=== PATIENT | female | born 1955 | race African-American/Black ===

== ENCOUNTER 2019-04-25 18:35 | Emergency (ER) | payer OTHER ==
[~2019-04-25] VITALS: Ht 167.6 cm; Wt 86.2 kg
[2019-04-25] MEDS ORDERED: NORVASC 2.5 MG2.5 M1 PO (18:37)
[2019-04-25] MEDS ORDERED: SERTRALINE HCL50 MG PO (18:38)
[2019-04-25] MEDS ORDERED: CELEBREX 200 M200 M1 PO (18:38)
[2019-04-25] MEDS ORDERED: TRAMADOL 50 MG50 MG PO ×2 (18:38→21:58)
[2019-04-25] MEDS ORDERED: XANAX 0.25 MG0.25 MG PO (18:38)
[2019-04-25 19:27] LABS: HEMATOCRIT 37.4 % (37.0-47.0); HEMOGLOBIN 12.4 gm/dL (12.0-15.0); MCH 31.8 pg (26.0-34.0); MCHC 33.2 g/dL (28.0-37.0); MCV 95.7 fL (80.0-100.0); RBC 3.91 mil/uL (4.20-5.00); RDW 13.8 % (10.5-14.5); WBC 5.7 thou/uL (4.0-11.0)
[2019-04-25 19:35] LABS: AMP/METHAMP Negative (Negative); BARBITURATES Negative (Negative); BENZODIAZEPINES Negative (Negative); COCAINE Negative (Negative); METHADONE Negative (Negative); OPIATES POSITIVE (Negative); PCP POSITIVE (Negative)
[2019-04-25 19:36] LABS: CALCIUM 9.5 mg/dL (8.5-10.1); CREATININE 0.7 mg/dL (0.6-1.0); POTASSIUM 3.5 mmol/L (3.5-5.1)
[2019-04-25] MEDS ORDERED: ASA81BEC PO (21:31)
[2019-04-25] MEDS ORDERED: CARAFATE1 GM PO (21:32)
[2019-04-25] MEDS ORDERED: METOPROLOL SUCC50 MG PO (21:32)
[2019-04-25] MEDS ORDERED: GLIMEPIRIDE1 MG PO (21:32)
[2019-04-25] MEDS ORDERED: MYLANTA MAXIMU355 ML PO (21:33)
[2019-04-25] MEDS ORDERED: NOVOLIN 70100 UNIT/1 SUBQ (21:34)
[2019-04-25] MEDS ORDERED: OXYBUTYNIN 5 MG5 M2 PO (21:34)
[2019-04-25] MEDS ORDERED: PROTONIX40 M2 PO (21:35)
[2019-04-25] MEDS ORDERED: REFRESH CLASSI1 EACH OPHTHALMIC ×2 (21:35→21:36)
[2019-04-25] MEDS ORDERED: PROLOPRIM100 MG PO (21:36)
[2019-04-25] MEDS ORDERED: XARELTO15 MG PO (21:38)
[2019-04-25] MEDS ORDERED: VENTOLIN HFA 1818 GM INH (21:38)
[2019-04-25] MEDS ORDERED: ZANTAC 150MG T150 M1 PO (21:56)
[2019-04-25] MEDS ORDERED: ALPRAZOLAM2 MG PO (21:56)
[2019-04-25] MEDS ORDERED: ATORVASTATIN CA20 MG PO (21:57)
[2019-04-25] MEDS ORDERED: RISPERDAL 1 MG T1 MG PO (21:57)
[2019-04-25] MEDS ORDERED: ASPIRIN EC81 M1 PO (21:57)
[2019-04-25] MEDS ORDERED: TRIAMTERENE/HCT1 CA1 PO (21:58)
[2019-04-25] MEDS ORDERED: AMLODIPINE BESY10 MG PO (21:58)
[2019-04-26 01:12] VITALS: BP 119/77
== END 2019-04-26 00:50 | disposition home or self-care (01) ==
LOC: ER 18:35
PROVIDERS: Emergency Medicine
DX: F19.10 Other psychoactive substance abuse, uncomplicated (principal); F32.9 Major depressive disorder, single episode, unspecified; F17.210 Nicotine dependence, cigarettes, uncomplicated; I10 Essential (primary) hypertension; M19.90 Unspecified osteoarthritis, unspecified site; Z86.73 Personal history of transient ischemic attack (TIA), and cerebral infarction without residual deficits; Z79.899 Other long term (current) drug therapy; Z79.82 Long term (current) use of aspirin

== ENCOUNTER 2019-11-18 22:48 | Observation (INO) | payer OTHER ==
[~2019-11-18] VITALS: Ht 167.6 cm; Wt 98.9 kg
[~2019-11-18 22:48] MED LIST: ALPRAZOLAM2 MG PO; AMLODIPINE BESY10 MG PO; ASA81BEC PO; ASPIRIN EC81 M1 PO; ATORVASTATIN CA20 MG PO; CARAFATE1 GM PO; CELEBREX 200 M200 M1 PO; GLIMEPIRIDE1 MG PO; METOPROLOL SUCC50 MG PO; MYLANTA MAXIMU355 ML PO; NORVASC 2.5 MG2.5 M1 PO; NOVOLIN 70100 UNIT/1 SUBQ; OXYBUTYNIN 5 MG5 M2 PO; PROLOPRIM100 MG PO; PROTONIX40 M2 PO; REFRESH CLASSI1 EACH OPHTHALMIC; RISPERDAL 1 MG T1 MG PO; SERTRALINE HCL50 MG PO; TRAMADOL 50 MG50 MG PO; TRIAMTERENE/HCT1 CA1 PO; VENTOLIN HFA 1818 GM INH; XANAX 0.25 MG0.25 MG PO; XARELTO15 MG PO; ZANTAC 150MG T150 M1 PO
[2019-11-18 22:49] VITALS: BP 161/85
[2019-11-18 23:31] LABS: ABSOLUTE NEUTROPHILS 2.3 thou/uL (1.4-8.2); BASOPHILS 1.4 % (0.0-2.0); EOSINOPHILS 3.9 % (0.0-3.0); HEMATOCRIT 35.3 % (37.0-47.0); HEMOGLOBIN 11.9 gm/dL (12.0-15.0); LYMPHOCYTES 41.8 % (24.0-44.0); MCH 31.2 pg (26.0-34.0); MCHC 33.7 g/dL (28.0-37.0); MCV 92.4 fL (80.0-100.0); MONOCYTES 9.3 % (1.0-8.0); PLATELET COUNT 200 thou/uL (150-400); POLYS 43.6 % (36.0-66.0); RBC 3.82 mil/uL (4.20-5.00); RDW 14.5 % (10.5-14.5); WBC 5.4 thou/uL (4.0-11.0)
[2019-11-18 23:36] LABS: ANION GAP 1 mmol/L (7-16); BUN 15 mg/dL (7-18); CALCIUM 8.5 mg/dL (8.5-10.1); CHLORIDE 105 mmol/L (98-107); CO2 34 mmol/L (21-32); CREATININE 0.9 mg/dL (0.6-1.0); GLUCOSE 85 mg/dL (74-106); POTASSIUM 3.7 mmol/L (3.5-5.1); SODIUM 140 mmol/L (136-145)
[2019-11-18 23:47] LABS: ALBUMIN 2.5 g/dL (3.4-5.0); SGOT 82 U/L (15-37); SGPT 44 U/L (30-65); TOTAL BILIRUBIN 0.6 mg/dL (0.2-1.0); TOTAL PROTEIN 7.9 g/dL (6.4-8.2); TROPONIN-I <0.06 ng/mL (<0.06)
[2019-11-19 01:23] LABS: URINE BILIRUBIN NEGATIVE (Negative); URINE BLOOD 2+ (Negative); URINE CLARITY CLEAR; URINE COLOR YELLOW; URINE GLUCOSE-RANDOM* NEGATIVE (Negative); URINE KETONES NEGATIVE (Negative); URINE LEUKOCYTES-REFLEX TRACE (Negative); URINE NITRITE-REFLEX NEGATIVE (Negative); URINE PROTEIN (DIPSTICK) NEGATIVE (Negative); URINE SPECIFIC GRAVITY 1.015 (1.005-1.035)
[2019-11-19 01:37] LABS: SQUAMOUS 0-3 Few /LPF (0-3); URINE WBC-REFLEX 0-5 Rare /HPF (0-5)
[2019-11-19 01:38] LABS: BACTERIA-REFLEX 1-9 Few /HPF (None Seen); CASTS None Seen /LPF (None Seen); CRYSTALS None Seen /LPF (None Seen)
--- NOTE | 2019-11-19 09:05 | EKG ---
[facility] [place] [address] [address] ELECTROCARDIOGRAM REPORT Name: JUAN MANUEL GARZA Room #: 170- ADM Kaila M.R.#: [id number] Admission: 11/19/19 Attend Phys: Tong Caballero MD Discharge: Date of : 59 Report #: [id number] THIS REPORT FOR: cc: FAM - No family physician/PCP FAM - No family physician/PCP Jasen Lockhart MD [facility] THIS REPORT FOR: //name// [facility] ED Test Date: 2019-11-18 Test Time: 22:58:25 Pat Name: JUAN MANUEL GARZA Department: Room: 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 : 1955 Requested By: Domenica Grande Order Number: [id number] MD: Jasen Lockhart Measurements Intervals [place] Rate: 80 P: 58 CA: 229 QRS: -2 QRSD: 100 T: 38 QT: 400 QTc: 462 Interpretive Statements Sinus rhythm Prolonged CA interval No previous ECG available for comparison Electronically Signed On 11-19-2019 9:04:50 CDT by Jasen Lockhart [email or web address] <ELECTRONICALLY SIGNED> By: Jasen Lockhart MD, [facility] 11/19/19 0904 [id number] Jasen Lockhart MD, [facility] /EPI
[2019-11-19 12:50] VITALS: BP 125/77
[2019-11-19 13:00] VITALS: BP 138/72
[2019-11-19] MEDS ORDERED: NEURONTIN 300M300 M2 PO (13:17)
[2019-11-19] MEDS ORDERED: KEFLEX500 M1 PO (13:18)
[2019-11-19] MEDS ORDERED: KEPPRA XR750 MG PO (13:22)
[2019-11-19] MEDS ORDERED: SUBOXONE 8 MG-1 EAC3 SUBLING (13:22)
[2019-11-19] MEDS ORDERED: PANTOPRAZOLE SO40 M1 PO (13:23)
[2019-11-19] MEDS ORDERED: SERTRALINE HCL100 MG PO (13:23)
--- NOTE | 2019-11-19 14:18 | NUR ---
FAXED FACE SHEET TO [facility] RECEIVED CONFIRMATION TO CHECK PT'S BENEFITS FOR ACUTE REHAB. DP TO FOLLOW.
[2019-11-19 16:00] VITALS: BP 131/86
--- NOTE | 2019-11-19 16:42 | NUR ---
PT CARE ASSUMED AT 1244 FROM THE ER. PT IS A&Ox4. PT DOES NOT WANT TO BE IN THE HOSPITAL. SHE UNDERSTANDS HER PHYSICAL LIMITATIONS. 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 SHE HAS SPOKEN TO [employer] AND CONTINUES TO BE ADAMENT ABOUT WANTING TO LEAVE. PT SELF TRANSFERS HERSELF FROM CHAIR TO BED WITH STANDBY ASSISTANCE. FALL PROTOCOL IN PLACE. SEIZURE PROTOCOL IN PLACE. IV PATENT WITH NO REDNESS OR EDEMA. PT IS TO LEAVE APPROX.1800 WITH WHEELCHAIR VAN TO HOME IF WILL DISCHARGE IF NOT SHE STATED SHE WILL "LEAVE AMA" WILL CONTINUE TO MONITOR.
--- NOTE | 2019-11-19 17:01 | NUR ---
Case opened d/t consult for possible placement and complex social situation. Contract Loader visited with the pt and cm role introduced. Pt is A&ox4 and indicates that she lives in her own home [address]. She has needed dme in place including w/c,rwalker and cane. She lives there alone and [place] [facility] [place] [facility] earlier in October; her dtr was her caregiver through [place]. Her provider is [facility] [phone]. Contract Loader spoke with [facility] and they confirmed that the pt has 121hrs of caregiving each month and it is client directed. She is in the process of getting a new caregiver approved as her dtr can no longer be her caregiver as she had a baby. They are hoping to have the new caregiver in place early next week. Contract Loader spoke with the disability program navigator at [facility] [phone] to request an increase in hours as well. [facility] did reevaluate;however they do not feel the pt will qualify for a new acute rehab stay as she was recommended for LTC placement and ended up leaving their building on 10/29/2019 AMA. The pt denies having a pcp but reports mutliple specialists that she follows up with at [facility] [place]. She denies wanting RN followup. She does not want LTC placement and wants to return home stating she just needs a ride as her w/c is at the house. The pt is able to transfer with from bed to chair and indicates that she functions at a w/c level in the home. She states she will leave AMA if tell her she needs ltc placment. Case discussed with the attending. All parties anticipating dc home after dinner via [employer] service. [email or web address] arranged for a 6:30pm with door to door service vouchered by cm. Nursing to send the pt with some snacks and an extra meal. Hotline call placed to [facility] d/t pt's limited support system and reports of living alone.
[2019-11-19 17:36] VITALS: BP 131/86
== END 2019-11-19 19:05 | disposition home or self-care (01) ==
LOC: ER 22:48 → EROBS 11-19 02:45 → 4S 11-19 12:45
PROVIDERS: Student in an Organized Health Care Education/Training Program; ADMIT Internal Medicine; ATTEND Internal Medicine
DX: R53.81 Other malaise (principal); R42 Dizziness and giddiness; K21.9 Gastro-esophageal reflux disease without esophagitis; I10 Essential (primary) hypertension; E78.5 Hyperlipidemia, unspecified; Z86.73 Personal history of transient ischemic attack (TIA), and cerebral infarction without residual deficits; E66.9 Obesity, unspecified; G40.909 Epilepsy, unspecified, not intractable, without status epilepticus; F32.9 Major depressive disorder, single episode, unspecified; M19.90 Unspecified osteoarthritis, unspecified site; F17.210 Nicotine dependence, cigarettes, uncomplicated; F20.9 Schizophrenia, unspecified; Z86.19 Personal history of other infectious and parasitic diseases; R62.7 Adult failure to thrive

== ENCOUNTER 2020-10-31 19:21 | Emergency (ER) | payer OTHER ==
[~2020-10-31] VITALS: Ht 167.6 cm; Wt 109.9 kg
[~2020-10-31 19:21] MED LIST changes: +KEFLEX500 M1 PO; +KEPPRA XR750 MG PO; +NEURONTIN 300M300 M2 PO; +PANTOPRAZOLE SO40 M1 PO; +SERTRALINE HCL100 MG PO; +SUBOXONE 8 MG-1 EAC3 SUBLING
[2020-10-31 20:28] LABS: BASOPHILS 1.3 % (0.0-2.0); EOSINOPHILS 1.6 % (0.0-3.0); HEMATOCRIT 36.4 % (37.0-47.0); HEMOGLOBIN 12.1 gm/dL (12.0-15.0); LYMPHOCYTES 33.1 % (24.0-44.0); MCH 30.4 pg (26.0-34.0); MCHC 33.3 g/dL (28.0-37.0); MCV 91.3 fL (80.0-100.0); MONOCYTES 9.1 % (1.0-8.0); PLATELET COUNT 203 thou/uL (150-400); POLYS 54.9 % (36.0-66.0); RBC 3.98 mil/uL (4.20-5.00); RDW 14.6 % (10.5-14.5); WBC 7.2 thou/uL (4.0-11.0)
[2020-10-31 20:38] LABS: ANION GAP 6 mmol/L (7-16); BUN 16 mg/dL (7-18); CALCIUM 8.6 mg/dL (8.5-10.1); CHLORIDE 108 mmol/L (98-107); CO2 29 mmol/L (21-32); CREATININE 0.8 mg/dL (0.6-1.0); GLUCOSE 93 mg/dL (74-106); POTASSIUM 4.8 mmol/L (3.5-5.1); SODIUM 143 mmol/L (136-145)
[2020-10-31 20:48] LABS: ALBUMIN 3.2 g/dL (3.4-5.0); SGOT 76 U/L (15-37); SGPT 49 U/L (14-59); TOTAL BILIRUBIN 0.7 mg/dL (0.2-1.0); TOTAL PROTEIN 7.2 g/dL (6.4-8.2); TROPONIN-I <0.06 ng/mL (<0.06)
[2020-10-31] MEDS ORDERED: LIPITOR 40 MG T40 M1 PO (20:55)
[2020-10-31] MEDS ORDERED: CONSTULOSE10 GM/152 (20:55)
[2020-10-31] MEDS ORDERED: RISPERIDONE2 MG PO (20:57)
[2020-10-31 21:20] VITALS: BP 136/79
--- NOTE | 2020-11-01 07:18 | EKG ---
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 : 1955 Requested By: Sunday Alvarado Order Number: [id number] MD: Santi Vanegas Measurements Intervals [place] Rate: 77 P: 64 CO: 233 QRS: 22 QRSD: 98 T: 55 QT: 397 QTc: 450 Interpretive Statements Sinus rhythm Prolonged [place] interval Left atrial enlargement Compared to ECG 11/18/2019 22:58:25 Atrial abnormality now present Electronically Signed On 11-01-2020 7:18:42 CDT by Santi Vanegas [email or web address] <ELECTRONICALLY SIGNED> By: Santi Vanegas MD, [facility] 11/01/20 07 1936 35 Santi Vanegas MD, [facility] /EPI
== END 2020-10-31 21:20 | disposition home or self-care (01) ==
LOC: ER 19:21
PROVIDERS: Emergency Medicine
DX: J40 Bronchitis, not specified as acute or chronic (principal); Z20.822 Contact with and (suspected) exposure to COVID-19; I10 Essential (primary) hypertension; M19.90 Unspecified osteoarthritis, unspecified site; F17.210 Nicotine dependence, cigarettes, uncomplicated; Z86.73 Personal history of transient ischemic attack (TIA), and cerebral infarction without residual deficits